=== PATIENT | female | born 1995 | race Caucasian/White ===

== ENCOUNTER 2017-03-16 12:01 | Emergency (ER) | payer SELFPAY ==
[~2017-03-16] VITALS: Ht 180.3 cm; Wt 113.4 kg
[~2017-03-16 12:01] MED LIST: BACTRIM DS 8001 TA1 PO; KEFLEX500 MG PO; MOTRIN800 MG PO; NKHM; ZITHROMAX Z PA250 MG PO; ZYRTEC10 M1 PO
[2017-03-16] MEDS ORDERED: Motrin,Rufen800 MG PO (12:41)
== END 2017-03-16 12:52 | disposition home or self-care (01) ==
LOC: ED 12:01
DX: S93.402A Sprain of unspecified ligament of left ankle, initial encounter (principal); W01.0XXA Fall on same level from slipping, tripping and stumbling without subsequent striking against object, initial encounter; Y93.01 Activity, walking, marching and hiking; Y92.89 Other specified places as the place of occurrence of the external cause; Y99.8 Other external cause status

== ENCOUNTER 2017-05-04 15:33 | Emergency (ER) | payer BC ==
[~2017-05-04] VITALS: Ht 180.3 cm; Wt 140.6 kg
[~2017-05-04 15:33] MED LIST changes: +Motrin,Rufen800 MG PO
== END 2017-05-04 19:10 | disposition left against medical advice (07) ==
LOC: ED 15:33
DX: R04.0 Epistaxis (principal)

== ENCOUNTER 2021-01-23 15:20 | Emergency (ER) | payer OTHER ==
[~2021-01-23] VITALS: Ht 180.3 cm; Wt 163.3 kg
[~2021-01-23 15:20] MED LIST changes: +AUGMENTIN 875875 MG PO; +KEFLEX500 M1 PO; +PREDNISONE20 M1 PO; +PRINIVIL10 MG PO; +SEPTDS PO
[2021-01-23] MEDS ORDERED: IBUPROFEN600 MG PO (20:18)
== END 2021-01-23 20:33 | disposition home or self-care (01) ==
LOC: ED 15:20
DX: M79.672 Pain in left foot (principal); Z79.2 Long term (current) use of antibiotics; Z79.899 Other long term (current) drug therapy

== ENCOUNTER 2021-03-01 17:42 | Emergency (ER) | payer OTHER ==
[~2021-03-01] VITALS: Ht 180.3 cm; Wt 163.3 kg
[~2021-03-01 17:42] MED LIST changes: +IBUPROFEN600 MG PO
[2021-03-01] MEDS ORDERED: CYCLOBENZAPRINE5 M3 PO (18:36)
[2021-03-01] MEDS ORDERED: MEDROL DOSEPAK4 MG PO (18:36)
== END 2021-03-01 20:06 | disposition home or self-care (01) ==
LOC: ED 17:42
DX: M54.16 Radiculopathy, lumbar region (principal); Z79.2 Long term (current) use of antibiotics; Z79.899 Other long term (current) drug therapy

== ENCOUNTER 2023-09-17 15:39 | Emergency (ER) | payer OTHER ==
[~2023-09-17] VITALS: Ht 185.4 cm; Wt 164.7 kg
[~2023-09-17 15:39] MED LIST changes: +CYCLOBENZAPRINE5 M3 PO; +MEDROL DOSEPAK4 MG PO
== END 2023-09-17 18:26 | disposition home or self-care (01) ==
LOC: ED 15:39
DX: J10.1 Influenza due to other identified influenza virus with other respiratory manifestations (principal); Z20.822 Contact with and (suspected) exposure to COVID-19

== ENCOUNTER → 2024-02-06 | Outpatient (CLI) | payer OTHER | END | disposition home or self-care (01) | LOC: RAD 13:52 | PROVIDERS: ATTEND Nurse Practitioner Primary Care | DX: M17.12 Unilateral primary osteoarthritis, left knee (principal); M25.462 Effusion, left knee ==

== ENCOUNTER 2024-11-07 17:10 | Emergency (ER) | payer OTHER ==
[~2024-11-07] VITALS: Ht 182.8 cm; Wt 167.8 kg
[2024-11-07] MEDS ORDERED: hydrOXYzine pamoate 25 MG CAP PO ONE (17:40)
[2024-11-07] MEDS ORDERED: Ketorolac Tromethamine 30 MG/ML VIAL IM ONE (17:40)
[2024-11-07] MEDS ORDERED: methylPREDNISolone sod succ 125 MG VIAL IM ONE (17:40)
[2024-11-07] MEDS ORDERED: CYCLOBENZAPRINE5 M3 PO (18:51)
== END 2024-11-07 18:59 | disposition home or self-care (01) ==
LOC: ED 17:10
DX: S39.012A Strain of muscle, fascia and tendon of lower back, initial encounter (principal); F41.9 Anxiety disorder, unspecified; R07.89 Other chest pain; X50.0XXA Overexertion from strenuous movement or load, initial encounter; Y93.89 Activity, other specified; Y92.009 Unspecified place in unspecified non-institutional (private) residence as the place of occurrence of the external cause; Y99.8 Other external cause status